=== PATIENT | female | born 1965 | race American Indian/Alaskan Native ===

== ENCOUNTER 2020-09-26 07:48 | Day surgery (SDC) | payer MEDICARE ==
[2020-09-26] MEDS ORDERED: ASPIRIN EC 325 MG TAB PO ONE (08:28)
[2020-09-26] MEDS ORDERED: diphenhydrAMINE 50 MG/ML VIAL IV NR (09:00)
[2020-09-26] MEDS ORDERED: methylPREDNISolone Sod Succinate 125 MG/2 ML INJ IV ONE (09:00)
[2020-09-26] MEDS ORDERED: SODIUM CHLORIDE 0.9% 500 ML 500 ML IV SCH (09:00)
[2020-09-26] MEDS ORDERED: FAMOTIDINE 20 MG/2 ML INJ IV ONE ×2 (09:02→09:22)
[2020-09-26 09:03] LABS: Basophils % (Auto) 0.9 % (0.0-1.8); Eosinophils # (Auto) 0.2 K/mm3 (0.0-0.4); Eosinophils % (Auto) 4.4 % (0.0-4.3); Hematocrit 37.5 % (30.3-42.9); Hemoglobin 12.5 gm/dl (10.1-14.3); Lymphocytes # (Auto) 1.1 K/mm3 (1.2-5.4); Lymphocytes % (Auto) 27.1 % (13.4-35.0); Mean Corpuscular HGB Conc 33 % (30-34); Mean Corpuscular Volume 90 fl (79-97); Monocytes # (Auto) 0.5 K/mm3 (0.0-0.8); Monocytes % (Auto) 11.2 % (0.0-7.3); Platelet Count 245 K/mm3 (140-440); Red Blood Count 4.18 M/mm3 (3.65-5.03)
[2020-09-26] MEDS ORDERED: methylPREDNISolone Sod Succinate 125 MG/2 ML INJ ONE (09:22)
[2020-09-26] MEDS ORDERED: diphenhydrAMINE 50 MG/ML VIAL ONE (09:22)
[2020-09-26 09:26] LABS: Blood Urea Nitrogen 10 mg/dL (7-17); Calcium 9.2 mg/dL (8.4-10.2); Hemolysis Index 1
[2020-09-26] MEDS ORDERED: HEPARIN/NS 5000 UNIT/500ML 1,000 ML IR ONE (09:38)
[2020-09-26 09:39] LABS: BUN/Creatinine Ratio 14
[2020-09-26] MEDS ORDERED: fentaNYL 100 MCG/2 ML INJ ONE (09:39)
[2020-09-26] MEDS ORDERED: LIDOCAINE (2%) 20 MG/1 ML VIAL 20 ML MDV INFILTRATI ONE (09:39)
[2020-09-26] MEDS ORDERED: HEPARIN 10,000 UNITS/10 ML VIAL ONE (09:39)
[2020-09-26] MEDS ORDERED: MIDAZOLAM 2 MG/2 ML INJ ONE (09:39)
[2020-09-26] MEDS ORDERED: VERAPAMIL 5 MG/2 ML INJ ONE (09:39)
[2020-09-26 09:40] LABS: INR 0.91 (0.87-1.13); Partial Thromboplastin Time 26.1 Sec. (24.2-36.6)
[2020-09-26] MEDS ORDERED: NITROGLYCERIN SYRINGE 3 ML ONE (09:40)
--- NOTE | 2020-09-26 09:58 | Electrocardiograph Report ---
[facility] Test Date: 2020-09-26 Test Time: 08:40:12 Pat Name: KILO IZQUIERDO Department: Room: Gender: F Egyptologist: YOLANDA : 1965 Requested By: AARON PATEL Order Number: [id number] Reading MD: Aaron Patel Measurements Intervals [place] Rate: 76 P: 71 KS: 182 QRS: 12 QRSD: 92 T: 59 QT: 399 QTc: 451 Interpretive Statements Sinus rhythm No previous ECG available for comparison Electronically Signed On 09-26-2020 9:57:42 EDT by Aaron Patel
--- NOTE | 2020-09-26 12:20 | Short Stay Summary ---
Short Stay Documentation Date of service: 09/26/20 - History H&P: obtained from office - Allergies and Medications Current Medications: Allergies Iodinated Contrast Media Allergy (Verified 09/26/20 08:41) Anaphylaxis Penicillins Adverse Reaction (Unverified 03/21/18 13:41) Anaphylaxis Sulfa (Sulfonamide Antibiotics) Adverse Reaction (Unverified 03/21/18 13:41) Anaphylaxis Home Medications Medication Instructions Recorded Confirmed Last Taken Type FLUoxetine [PROzac] 10 mg PO QDAY 09/26/20 09/26/20 09/25/20 History Methylphenidate HCl 1 tab PO TID 09/26/20 09/26/20 09/25/20 History OXcarbazepine [Oxtellar XR] 150 mg PO QDAY 09/26/20 09/26/20 09/25/20 History Topiramate [Topiramate ER] 100 mg PO DAILY 09/26/20 09/26/20 09/25/20 History polyethylene glycoL 3350 [Miralax 17 gm PO QDAY 09/26/20 09/26/20 1 Week Ago History 3350] ~09/19/20 Active Medications Sodium Chloride (Nacl 0.9% 500 Ml) 500 mls @ 50 mls/hr IV DIRECT LINNETTE Stop: 09/26/20 18:59 Last Admin: 09/26/20 09:43 Dose: 50 mls/hr Documented by: - Physical exam Integumentary: other (Right Radial site inspected. No bleeding or hematoma noted. ) - Brief post op/procedure progress note Date of procedure: 09/26/20 Pre-op diagnosis: Exertional CP Post-op diagnosis: other (Normal Coronary Arteries) Procedure: [facility]- see dictated cath report Anesthesia: local Estimated blood loss: none - Disposition Condition at discharge: Good Disposition: DC-01 TO HOME OR SELFCARE - Discharge Diagnoses (1) Normal coronary arteries Status: Acute Short Stay Discharge Plan Activity: advance as tolerated Diet: low fat, low cholesterol, low salt Follow up with: FAVIAN AYALA MD [Primary Care Provider] - 7 Days LEOBARDO PATEL MD [Staff Physician] - 10/16/20 11:00 am (f/u with Dr BERNARD Patel in our [place] office on 10/16/20 at 11:00am)
--- NOTE | 2020-09-26 12:56 | Cardiac Catherization Report ---
DATE OF PROCEDURE: 09/26/2020 CARDIAC CATHETERIZATION REFERRING PHYSICIAN: Dr. Birdie Deng. INDICATIONS FOR THE PROCEDURE: The patient is a pleasant 55-year-old -Polish female with multiple risk factors including palpitations, chest pain. Today, she is hypertensive, abnormal stress test, referred for left heart catheterization. Risks, benefits and potential alternatives explained at length prior to obtaining informed consent. PROCEDURE IN DETAIL: The patient was brought to catheterization lab in the postabsorptive state and prepped and draped in sterile fashion. Esdras's test in right hand is normal. A 2 mL of 2% lidocaine used to anesthetize the right wrist. A standard 6-Belgian hydrophilic sheath used to cannulate the right radial artery via modified Seldinger technique. All exchanges performed to exchange a J-tip guidewire. JL3.5 catheter was used to engage the left main. No dampening or ventricularization. Cineangiography performed in multiple projections. JR4 catheter used to cross the aortic valve under fluoroscopic guidance. Left ventriculography performed in 30 MABRY and 30 DUTCH projections via hand injections. Catheter was flushed. Manual pullback performed with continuous pressure monitoring. Catheter was used to engage the right coronary. No dampening or ventricularization. Cineangiography performed in multiple projections. Due to presence of hypertension, recurrent chest pain, aortogram was performed in a DUTCH projection with a power injector and pigtail catheter. Next, the catheter was removed from the body of the wire, sheath removed. Manual pressure was used to achieve hemostasis. I directly supervised the administration of moderate sedation with fentanyl and Versed from 10:20 a.m. to 10:50 a.m. No immediate complications identified. DATA: Aortic pressure is 150/90. LV pressure is 150. LVEDP of 20 mmHg. Left ventriculography reveals normal systolic performance with estimated ejection fraction of 55-60%. No evidence of aortic stenosis. Root aortogram is without evidence of dissection penetrating aortic ulcer or aortic insufficiency. Right coronary is a large vessel, courses AV groove. Distally, bifurcates in the posterior descending and posterolateral branches. No discrete stenoses noted. Left main without significant disease, bifurcates in left anterior descending and left circumflex. Left circumflex is a moderate-sized vessel, courses AV groove, no significant disease. LAD is a moderate sized vessel, courses the anterior intergroove, wraps around the apex, no significant disease. CONCLUSIONS: 1. No angiographic evidence of significant epicardial coronary disease in this right dominant system. 2. Normal left ventricular systolic performance with an estimated ejection fraction of 55-60%. 3. No evidence of aortic stenosis. 4. High normal LVEDP. 4. Root aortography without evidence of dissection penetrating aortic ulcer or aortic insufficiency. The patient is clinically stable, chest pain free. Aggressive primary and secondary prevention measures. Standard radial care. Results of the procedure were explained in length to the patient and family. All questions were addressed. Follow up with Dr. Birdie Deng in the office. TID: [id number] RECEIPT: [id number] YISSEL/ANTHONY
[2020-09-26 15:26] VITALS: BP 146/90
== END 2020-09-26 14:40 | disposition home or self-care (01) ==
LOC: CATHLABREC 07:48
PROVIDERS: ATTEND Internal Medicine
DX: R94.39 Abnormal result of other cardiovascular function study (principal); R07.89 Other chest pain; I10 Essential (primary) hypertension; Z88.0 Allergy status to penicillin; Z88.2 Allergy status to sulfonamides; Z91.041 Radiographic dye allergy status; Z98.891 History of uterine scar from previous surgery; Z82.49 Family history of ischemic heart disease and other diseases of the circulatory system
CPT/HCPCS: 36415; 80048; 85025; 85610; 85730; 93005; 93458; 93567; 99156; 99157; C1887; C1894; J1200; J1644; J2250; J2930; J3010; J7040; Q9967